=== PATIENT | female | born 2000 | race Asian ===

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

== ENCOUNTER 2020-03-05 16:39 | Inpatient (IN) | payer OTHER ==
[~2020-03-05] VITALS: Ht 167.6 cm; Wt 50.0 kg
[2020-03-05 16:52] VITALS: Ht 167.6 cm; Wt 50.0 kg
[2020-03-05 17:52] LABS: BASOPHIL % 0.4 % (0-2); PLATELET COUNT 184 x10^3mcL (130-400); RED CELL DISTRIBUTION WIDTH 13.6 % (11.5-14.5)
[2020-03-05 17:57] LABS: CALCIUM 7.9 mg/dL (8.5-10.1); CARBON DIOXIDE 27.8 mmol/L (21-32); CHLORIDE SERUM 106 mmol/L (98-107); CREATININE SERUM 0.8 mg/dL (0.6-1.0); GFR1 > 60 mL/min; GLUCOSE SERUM 139 mg/dL (74-106); SODIUM SERUM 139 mmol/L (136-145)
[2020-03-05 18:01] LABS: ALKALINE PHOSPHATASE 57 U/L (46-116); ALT/SGPT 15 U/L (14-59); AST/SGOT 11 U/L (15-37); BILIRUBIN TOTAL 0.35 mg/dL (0.20-1.00); MAGNESIUM 1.9 mg/dL (1.8-2.4); TOTAL PROTEIN, SERUM 6.3 g/dL (6.4-8.2)
[2020-03-05 18:04] LABS: ALBUMIN 3.3 g/dL (3.4-5.0)
[2020-03-05 18:06] LABS: microscopic required? YES; urine erythrocyte 3+ (NEGATIVE)
[2020-03-05] MEDS ORDERED: TOPROL XL25 MG PO (19:07)
[2020-03-05] MEDS ORDERED: ACID REDUCER20 MG PO (19:07)
[2020-03-05] MEDS ORDERED: NAPROSYN500 MG PO (19:08)
[2020-03-05 20:51] VITALS: BP 100/61
[2020-03-05 23:19] LABS: AMPHETAMINE QUAL UR NONE DETECTED (See below)
[2020-03-06 05:57] VITALS: BP 95/60
[2020-03-06 07:10] LABS: CALCIUM 8.6 mg/dL (8.5-10.1); CARBON DIOXIDE 24.7 mmol/L (21-32); CHLORIDE SERUM 108 mmol/L (98-107); CREATININE SERUM 0.6 mg/dL (0.6-1.0); GFR1 > 60 mL/min; GLUCOSE SERUM 80 mg/dL (74-106); PHOSPHOROUS 3.6 mg/dL (2.5-4.9); POTASSIUM SERUM 3.6 mmol/L (3.5-5.1); SODIUM SERUM 142 mmol/L (136-145)
[2020-03-06 07:14] LABS: BASOPHIL % 0.4 % (0-2); PLATELET COUNT 192 x10^3mcL (130-400); RED CELL DISTRIBUTION WIDTH 13.5 % (11.5-14.5)
[2020-03-06 09:15] VITALS: BP 99/63
[2020-03-06 12:39] VITALS: BP 94/50
[2020-03-06 17:03] VITALS: BP 101/67
[2020-03-06 22:05] VITALS: BP 95/54
[2020-03-07 01:13] VITALS: BP 98/62
[2020-03-07 05:50] VITALS: BP 92/55
[2020-03-07 07:01] LABS: BASOPHIL % 1.2 % (0-2); PLATELET COUNT 176 x10^3mcL (130-400); RED CELL DISTRIBUTION WIDTH 13.9 % (11.5-14.5)
[2020-03-07 07:05] LABS: CARBON DIOXIDE 25.2 mmol/L (21-32); CHLORIDE SERUM 109 mmol/L (98-107); CREATININE SERUM 0.6 mg/dL (0.6-1.0); GFR1 > 60 mL/min; GLUCOSE SERUM 80 mg/dL (74-106); PHOSPHOROUS 3.4 mg/dL (2.5-4.9); POTASSIUM SERUM 3.6 mmol/L (3.5-5.1); SODIUM SERUM 142 mmol/L (136-145)
[2020-03-07 09:11] VITALS: BP 93/56
[2020-03-07 12:14] VITALS: BP 96/54
[2020-03-07 16:25] VITALS: BP 99/67
[2020-03-07 20:45] VITALS: BP 97/54
== END 2020-03-07 22:21 | disposition home or self-care (01) | DRG 204 ==
LOC: ED 16:39 → DU 19:04 → MU 03-07 05:42
PROVIDERS: Emergency Medicine; ADMIT Family Medicine; ATTEND Family Medicine
DX: I95.1 Orthostatic hypotension (principal); E44.1 Mild protein-calorie malnutrition; J45.909 Unspecified asthma, uncomplicated; K21.9 Gastro-esophageal reflux disease without esophagitis; N39.0 Urinary tract infection, site not specified; K29.70 Gastritis, unspecified, without bleeding; M94.0 Chondrocostal junction syndrome [Tietze]; D64.9 Anemia, unspecified; Z88.8 Allergy status to other drugs, medicaments and biological substances; Z91.013 Allergy to seafood; Z68.1 Body mass index [BMI] 19.9 or less, adult
CPT/HCPCS: 83880; 97530-GP; C9113; G0378; J2405; J7030; J7040; Q0092